=== PATIENT | male | born 1985 | race Caucasian/White ===

== ENCOUNTER 2018-09-22 04:37 | Emergency (ER) | payer SELFPAY ==
[2018-09-22 04:57] VITALS: BP 122/81; PULSE 69; TEMP 98.6; BMI 23.1
--- NOTE | 2018-09-22 05:31 | PDOC ---
History of Present Illness - General Chief Complaint: Edema Stated Complaint: SWOLLEN JAW Time Seen by Provider: 09/22/18 04:55 History Source: Patient Exam Limitations: No Limitations - History of Present Illness Initial Comments: 33 y/o male presenting to [facility] ER via private auto complaining of swelling to left jaw without pain or discomfort. He noticed the swelling after waking from sleep approx. 1 hour prior to arrival. Believes the swelling has improved without intervention. Reports he may have fractured a tooth on the same side of the swelling a few weeks ago. Denies purulent discharge. Denies fever, chills, diaphoresis, difficulty swallowing, swelling inside of his mouth, SOB, or chest pain. Has not been evaluated by a dentist. PCP: None Medical Hx: - Pt denies past medical history. Denies prescription medications. Surgical Hx: - Pt denies past surgical history. Past History - Past Medical History Allergies/Adverse Reactions: Allergies Allergy/AdvReac Type Severity Reaction Status Date / Time No Known Allergies Allergy Verified 09/22/18 04:52 Home Medications: Ambulatory Orders Amoxicillin - [Amoxicillin 500mg Capsule -] 500 mg PO BID #14 capsule 09/22/18 COPD: No Other medical history: Pt denies - Suicide/Smoking/Psychosocial Hx Smoking History: Never smoked Have you smoked in the past 12 months: No Information on smoking cessation initiated: No Hx Alcohol Use: No Drug/Substance Use Hx: No Substance Use Type: None Review of Systems - Review of Systems Able to Perform ROS?: Yes Comments:: In addition to that documented in the HPI above, the additional ROS was obtained : Constitutional: Denies fevers or chills Eyes: Denies vision changes ENMT: Denies sore throat CV: Denies chest pain Resp: Denies SOB GI: Denies vomiting or diarrhea *Physical Exam - Vital Signs Last Vital Signs Temp Pulse Resp BP Pulse Ox 98.6 F 69 18 122/81 98 09/22/18 04:54 09/22/18 04:54 09/22/18 04:54 09/22/18 04:54 09/22/18 04:54 - Physical Exam Comments: Constitutional: Well-developed, well-nourished male in no acute distress or obvious discomfort. Found semi-fowlers in hospital bed. Alert and oriented x4. Answered all questions appropriately and completely. Speech was non-labored, non -pressured. HEENT: Normocephalic. No obvious external signs of trauma. Oropharynx: no inflammation, swelling, or exudate. Possible fracture of tooth #20; no tenderness to percussion. Mild swelling palpable on left mandible. Neck is supple, trachea is midline. No cervical lymphadenopathy. Cardiovascular: Regular rate and regular rhythm. No murmur, rubs, clicks, or gallops. Peripheral pulses: Radial pulses full. Respiratory: Breathing unlabored. Equal chest rise and fall. Clear to auscultation bilaterally. No stridor, no wheezing, no rhonchi. Neuro: Alert and oriented. Moving all four extremities spontaneously. Skin: Warm, dry, and intact. Psych: Affect: appropriate. Mood: normal. Medical Decision Making - Medical Decision Making *Reviewed vital signs, nursing notes, and prior visit documentation (if available). 33 y/o male complaining of resolving swelling to left mandible in setting of adjacent tooth fracture. Denies systemic symptoms or pain. Afebrile. Vitals unremarkable for hypotension or tachycardia. Physical exam as described above. Suspect possible dental abscess. Low suspicion for padmini angina, retropharyngeal abscess, or systemic infection. Imaging and/or laboratory studies are unlikely to change clinical management as this is likely a localized dental abscess. Will prescribed outpatient amoxicillin course. Attending provided dental clinic referral and return precautions. *DC/Admit/Observation/Transfer Diagnosis at time of Disposition: Dental abscess - Discharge Dispostion Disposition: HOME Condition at time of disposition: Stable Decision to Admit order: No - Prescriptions Prescriptions: Amoxicillin - [Amoxicillin 500mg Capsule -] 500 mg PO BID #14 capsule - Referrals - Patient Instructions Printed Discharge Instructions: DI for Tooth Decay, DI for Dental Pain Additional Instructions: Your swelling is likely because of a small infection inside of your mouth. This needs to be taken care of by a dentist. I have sent a prescription for an antibiotic called amoxicillin to your pharmacy. Take this medication as instructed on the package insert. You can take over the counter Tylenol or Advil as needed for pain. Take as directed on the package insert. Do not exceed the recommended dosage. Go to the nearest emergency department if your condition worsens or you feel like you need additional emergency evaluation. Print Language: THAI - Post Discharge Activity
--- NOTE | 2018-09-22 06:15 | PDOC ---
Attending Attestation - Resident Resident Name: Julian Adorno - ED Attending Attestation I have performed the following: I have examined & evaluated the patient, The case was reviewed & discussed with the resident, I agree w/resident's findings & plan - HPI HPI: 09/22/18 06:11 Healthy 33-year-old male with known left lower molar fractured tooth for several months presents now with sudden left jaw swelling. Patient did not brush his teeth prior to going to bed, awoke with discomfort and swelling to his jaw stemming around his fractured tooth, performed oral hygiene and symptoms slightly improved with decreased swelling, but presents for evaluation concern for infection. No airway issues or swallowing issues, no fevers or chills, admits swelling is near resolved. - Physicial Exam PE: 09/22/18 06:12 Afebrile, vital signs normal Very subtle and minimal swelling along the left jawline, no tenderness or erythema or induration Fractured left lower molar without gingival swelling or induration or fluctuance or tenderness to palpation Floor of mouth is normal, no crepitus or tenderness Voice is clear, uvula is midline, no stridor - Medical Decision Making 09/22/18 06:13 33-year-old male with fractured left lower molar, possible early superimposed infection versus irritation/inflammation. Afebrile and well-appearing without airway compromise, symptoms improved. Antibiotic course Oral hygiene Dental referral Understands return criteria
== END 2018-09-22 06:39 | disposition home or self-care (01) ==
LOC: JER 04:37
DX: K04.7 Periapical abscess without sinus (principal)
CPT/HCPCS: 99281-25

== ENCOUNTER 2020-07-26 10:46 | Emergency (ER) | payer SELFPAY ==
[2020-07-26 11:06] VITALS: BP 127/70; PULSE 65; BMI 22.7
--- NOTE | 2020-07-26 11:16 | PDOC ---
History of Present Illness - General Chief Complaint: Wound Stated Complaint: INFECTED WOUND Time Seen by Provider: 07/26/20 11:12 History Source: Patient Exam Limitations: Clinical Condition - History of Present Illness Initial Comments: 07/26/20 11:18 Patient with no significant past medical history present with pain and discoloration to side to nailbed of left index finger status post cutting fingernail 4 days ago and starting to have pain and discoloration fingernail 2 days ago. Patient has not taken anything for symptoms. Came in today to make sure fingernail does not get worse. Denies any other symptoms Timing/Duration: reports: other (3 days) Past History - Medical History Allergies/Adverse Reactions: Allergies Allergy/AdvReac Type Severity Reaction Status Date / Time No Known Allergies Allergy Verified 07/26/20 11:02 Home Medications: Ambulatory Orders Amox-Tr/K Cl [Augmentin - 875Mg Tablet] 1 tab PO BID #14 tablet 07/26/20 Mupirocin Ointment [Bactroban 2% Ointment -] 1 applic TP BID 7 Days #1 tube 07/26/20 COPD: No - Psycho-Social/Smoking History Smoking History: Never smoked Have you smoked in the past 12 months: No - Substance Abuse Hx (Audit-C & DAST Scrn) How often the patient has a drink containing alcohol: Monthly or less Score: In Men: 4 or > Positive; In Women: 3 or > Positive: 1 Screen Result (Pos requires Nsg. Audit-10AR): Negative In the last yr the pt used illegal drug/Rx for NonMed reason: No Score: Yes response is considered Positive: 0 Screen Result (Positive result requires Nsg. DAST-10): Negative Review of Systems - Review of Systems Able to Perform ROS?: Yes Is the patient limited Cymraes proficient: No Constitutional: No: Chills, Fever, Malaise HEENTM: No: Symptoms Reported, See HPI, Eye Pain, Blurred Vision, Tearing, Recent change in vision, Double Vision, Cataracts, Ear Pain, Ocular Prothesis, Ear Discharge, Nose Pain, Nose Congestion, Tinnitus, Nose Bleeding, Hearing Loss, Throat Pain, Throat Swelling, Mouth Pain, Dental Problems, Difficulty Swallowing, Mouth Swelling, Other Respiratory: No: Symptoms reported, See HPI, Cough, Orthopnea, Shortness of Breath, SOB with Exertion, SOB at Rest, Stridor, Wheezing, Productive cough, Hemoptysis, Other Cardiac (ROS): No: Symptoms Reported Musculoskeletal: Yes: Symptoms Reported, See HPI, Muscle Pain (fingernail pain) Integumentary: Yes: Symptoms Reported, See HPI, Other (fingernail infection) Neurological: No: Numbness, Weakness All Other Systems: Reviewed and Negative *Physical Exam - Vital Signs Last Vital Signs Temp Pulse Resp BP Pulse Ox 65 20 127/70 100 07/26/20 11:02 07/26/20 11:02 07/26/20 11:02 07/26/20 11:02 - Physical Exam 07/26/20 11:21 GENERAL: Well developed, well nourished. Awake and alert. No acute distress. NECK: Supple. Full ROM. PULMONARY: No evidence of respiratory distress. MUSCULOSKELETAL Normal range of motion at all joints. SKIN: Warm and dry. Normal capillary refill. mild discoloration with mild swelling to cuticle of lateral aspect of nailbed of left index finger. No visible swelling to finger. Full range of motion of finger. No discoloration of fingernail. NEUROLOGICAL: Alert, awake, appropriate. Gait is normal without ataxia. PSYCHIATRIC: Cooperative. Good eye contact. Appropriate mood General Appearance: Yes: Nourished, Appropriately Dressed. No: Apparent Distress Medical Decision Making - Medical Decision Making 07/26/20 11:19 Patient with no significant past medical history present with pain and discoloration to side to nailbed of left index finger status post cutting fingernail 4 days ago and starting to have pain and discoloration fingernail 2 days ago. Patient has not taken anything for symptoms. Came in today to make sure fingernail does not get worse. Denies any other symptoms Exam significant for mild discoloration with mild swelling to cuticle of lateral aspect of nailbed of left index finger. No visible swelling to finger. Full range of motion of finger. No discoloration of fingernail. Patient symptoms likely paronychia and stable for discharge Augmentin antibiotics twice daily for a week with dermatology follow-up Discharge - Discharge Information Problems reviewed: Yes Clinical Impression/Diagnosis: Paronychia due to ingrown nail Condition: Stable Disposition: HOME - Admission No - Additional Discharge Information Prescriptions: Amox-Tr/K Cl [Augmentin - 875Mg Tablet] 1 tab PO BID #14 tablet Mupirocin Ointment [Bactroban 2% Ointment -] 1 applic TP BID 7 Days #1 tube - Follow up/Referral Referrals: Cony Medina MD [Staff Physician] - - Patient Discharge Instructions Patient Printed Discharge Instructions: DI for Paronychia Additional Instructions: Take prescribed antibiotics and finish it to prevent worsening of fingernail infection. Refrain from cutting finger nail too short. Follow-up with your primary care or referred dermatology in a few days for reassessment - Post Discharge Activity
== END 2020-07-26 11:18 | disposition home or self-care (01) ==
LOC: JERFT 10:46
DX: L03.012 Cellulitis of left finger (principal)
CPT/HCPCS: 99283-25